=== PATIENT | male | born 1995 | race Caucasian/White ===

== ENCOUNTER 2023-04-13 08:38 | Outpatient (AMB) | payer SELFPAY ==
--- NOTE | 2023-04-13 09:06 | AM.OFFWIN_ITS ---
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 Patient Tobacco Use Status: Never used Tobacco Allergies No Known Allergies Allergy (Verified 04/13/23 09:09) Do you need a note to return to daycare/school/sports/work: No HPI HPI Comments History of Present Illness Details 28-year-old male who presents for evalua tion [employer]. Patient needs clearance for mild have run participation with the [employer]. Try symptoms otherwise healthy [facility] Social History Patient Tobacco Use Status: Never used Tobacco Review of Systems Const All systems reviewed & are unremarkable except as noted in HPI and below Denies fever(s), Denies headache(s) and Denies weakness Eyes Reports no additional complaints ENT Reports no additional complaints and Denies headache(s) Card Reports no additional complaints, Denies chest pain, Denies leg edema and Denies dyspnea Resp Denies cough and Denies dyspnea GI Denies abdominal pain, Denies nausea and Denies vomiting Denies dysuria and Denies urinary frequency Musc Reports no additional complaints Neuro Denies headache(s) and Denies weakness Psych Reports no additional complaints Endo Reports no additional complaints Physical Exam Vital Signs: Last Vital Signs Pulse 68 04/13/23 09:08 BP 112/58 L 04/13/23 09:08 Pulse Ox 98 04/13/23 09:08 Oxygen Delivery Method Room Air 04/13/23 09:08 BMI result Body Mass Index 29.4 Const General: healthy appearing, comfortable, no acute distress and alert Orientation/consciousness: patient oriented x3 Limitations: no limitations HEENT Head: Yes normal to inspection Ears: hearing grossly normal bilaterally Resp Effort & Inspection: normal respiratory effort and able to speak in complete sentences Cardio Rate: regular rate Skin General skin exam: no rashes or lesions noted Neuro General: patient oriented x3 Extrem General: Yes normal to inspection Assessment & Plan Assessment & Plan (1) Encounter for medical assessment: Code(s): Z00.8 - Encounter for other general examination Plan: VSS. Exam patient was insulin oriented no acute distress exam was unremarkable. Patient physically fit-appearing able to participate in general activities at the bedside. 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 Alternatives in treatment are also discussed. The patient will return for worsening symptoms or as needed. Advised that any labs/imaging ordered will be followed up on and contact made if further treatment needed. Counseled that patient's condition may require further evaluation and/or treatment. Symptoms of concern for worsening disorder discussed in detail in my customary manner. Patient does verbalize understanding of the plan, there are no apparent barriers to communication. The patient is given the opportunity to ask questions and have them answered to his/her satisfaction Coding Level of Care Code New Pt Level 3 (42941) Diagnoses Encounter for medical assessment Z00.8
[2023-04-13 09:08] VITALS: BP 112/58; PULSE 68; O2SAT 98; BMI 29.4
== END 2023-04-13 09:45 | disposition home or self-care (01) ==
PROVIDERS: PCP Pediatrics; Visit Provider Physician Assistant
DX: Z00.8 Encounter for other general examination (principal)
CPT/HCPCS: 99080; 99203